=== PATIENT | female | born 1955 | race Caucasian/White ===

== ENCOUNTER 2022-06-03 07:18 | Outpatient (CLI) | payer OTHER | END 2022-06-03 07:37 | disposition home or self-care (01) | LOC: TOM 07:18 | PROVIDERS: ATTEND Internal Medicine Gastroenterology | DX: K44.9 Diaphragmatic hernia without obstruction or gangrene (principal); Z80.0 Family history of malignant neoplasm of digestive organs; I70.90 Unspecified atherosclerosis ==